=== PATIENT | male | born 1965 | race Caucasian/White ===

== ENCOUNTER 2024-09-10 13:45 | Outpatient (CLI) | payer OTHER | END 2024-09-10 13:46 | disposition home or self-care (01) | LOC: CSHULT 13:45 | PROVIDERS: ATTEND Orthopaedic Surgery | DX: R55 Syncope and collapse (principal); R42 Dizziness and giddiness; I95.1 Orthostatic hypotension; I51.7 Cardiomegaly; I51.9 Heart disease, unspecified | CPT/HCPCS: 93306; 93880 ==